=== PATIENT | male | born 1970 | race Hispanic/Latino ===

== ENCOUNTER → 2020-10-18 | Outpatient (CLI) | payer MEDICARE, OTHER ==
[~2020-10-18] MED LIST: Calcium Carbonate PO; LOSARTAN-HCTZ1 EAC2 PO; METOPROLOL TART50 MG PO; Metoprolol Tartrate PO; NOVOLOG MI100 UNIT/1; Nifedipine PO; PROTONIX40 MG/ML PO; RENVELA800 MG PO; ROCALTROL0.25 MCG PO
== END ==
LOC: RAD 11:32
PROVIDERS: ATTEND Family Medicine
DX: R05 Cough (principal); R06.2 Wheezing
CPT/HCPCS: 71046

== ENCOUNTER 2023-05-22 22:42 | Emergency (ER) | payer MEDICARE, OTHER ==
[~2023-05-22] VITALS: Ht 182.9 cm; Wt 90.7 kg
[2023-05-22] MEDS ORDERED: TOBRAMYCIN SULFA5 ML OD (23:11)
[2023-05-22] MEDS ORDERED: FLUORESCEIN SOD(OPTH) 1 MG STRP OP ONE (23:15)
[2023-05-22] MEDS ORDERED: TETRACAINE HCL 0.5% OPTH SOLN 4 ML BTL OP ONE (23:15)
[2023-05-22 23:25] VITALS: BP 178/90; PULSE 70; RESP 18; TEMP 97.3; O2SAT 98
[2023-05-23] MEDS ORDERED: FLUORESCEIN SOD(OPTH) 1 MG STRP ONE (00:37)
[2023-05-23] MEDS ORDERED: TETRACAINE HCL 0.5% OPTH SOLN 4 ML BTL ONE (00:37)
[2023-05-23] MEDS ORDERED: TYLENOL325 MG PO (13:41)
[2023-05-23] MEDS ORDERED: DIPHENHYDRAMINE25 MG PO (13:41)
== END 2023-05-22 23:25 | disposition home or self-care (01) ==
LOC: FSED 22:46
DX: H57.11 Ocular pain, right eye (principal); T15.01XA Foreign body in cornea, right eye, initial encounter; H10.9 Unspecified conjunctivitis; I12.0 Hypertensive chronic kidney disease with stage 5 chronic kidney disease or end stage renal disease; E11.22 Type 2 diabetes mellitus with diabetic chronic kidney disease; N18.6 End stage renal disease; Z94.0 Kidney transplant status
CPT/HCPCS: 99283

== ENCOUNTER 2023-05-23 12:56 | Emergency (ER) | payer MEDICARE, OTHER ==
[~2023-05-23] VITALS: Ht 182.9 cm; Wt 90.7 kg
[~2023-05-23 12:56] MED LIST changes: +TOBRAMYCIN SULFA5 ML OD
[2023-05-23 13:09] VITALS: O2SAT 97
[2023-05-23] MEDS ORDERED: TYLENOL325 MG PO (13:41)
[2023-05-23] MEDS ORDERED: DIPHENHYDRAMINE25 MG PO (13:41)
== END 2023-05-23 14:06 | disposition home or self-care (01) ==
LOC: FSED 13:04
DX: S05.01XA Injury of conjunctiva and corneal abrasion without foreign body, right eye, initial encounter (principal); I12.0 Hypertensive chronic kidney disease with stage 5 chronic kidney disease or end stage renal disease; E11.22 Type 2 diabetes mellitus with diabetic chronic kidney disease; N18.6 End stage renal disease; Z94.0 Kidney transplant status
CPT/HCPCS: 99283

== ENCOUNTER → 2023-11-12 | Outpatient (REF) | payer MEDICARE, OTHER ==
[~2023-11-12] MED LIST changes: +DIPHENHYDRAMINE25 MG PO; +TYLENOL325 MG PO
[2023-11-12 15:02] LABS: BASOPHILS % 0.2 % (0.0-1.0); EOSINOPHILS # (AUTO) 0.1 (0.0-0.4); EOSINOPHILS % 0.9 % (0.0-6.0); HEMATOCRIT 47.9 % (38.2-49.6); HEMOGLOBIN 15.9 g/dL (14.0-18.0); LYMPHOCYTES # (AUTO) 0.6 (1.0-3.2); LYMPHOCYTES % 9.6 % (18.0-39.1); MEAN CORPUSCULAR HEMOGLOBIN 29.4 pg (28-32); MEAN CORPUSCULAR HGB CONC 33.2 g/dL (31-35); MEAN CORPUSCULAR VOLUME 88.7 fL (81-99); MONOCYTES # (AUTO) 0.4 (0.2-0.8); MONOCYTES % 6.8 % (4.4-11.3); NEUTROPHILS # (AUTO) 4.7 (2.1-6.9); PLATELET COUNT 162 x10e3/uL (140-360); RED CELL DISTRIBUTION WIDTH 13.1 % (11.7-14.4); WHITE BLOOD COUNT 5.75 x10e3/uL (4.8-10.8)
[2023-11-12 15:08] LABS: INR 0.88; PROTHROMBIN TIME 12.6 seconds (11.9-14.5)
[2023-11-12 15:09] LABS: PARTIAL THROMBOPLASTIN TIME 26.9 seconds (23.8-35.5)
[2023-11-12 15:33] LABS: ANION GAP 19.6 mmol/L (8-16); CREATININE, SERUM 1.54 mg/dL (0.72-1.25); POTASSIUM 4.6 mmol/L (3.5-5.1)
[2023-11-12 15:34] LABS: ALBUMIN 3.8 g/dL (3.5-5.0); ALBUMIN/GLOBULIN RATIO 1.2 (0.8-2.0); BILIRUBIN,TOTAL 0.8 mg/dL (0.2-1.2); CALCIUM 10.1 mg/dL (8.4-10.2); TOTAL PROTEIN 6.9 g/dL (6.5-8.1)
[2023-11-12 15:40] LABS: ERYTHROCYTE SEDIMENTATION RATE 2 mm/hr (0-13)
== END ==
LOC: DX 12:54
PROVIDERS: ATTEND Internal Medicine Infectious Disease
DX: M86.271 Subacute osteomyelitis, right ankle and foot (principal)
CPT/HCPCS: 36415; 36569; 71045; 80053; 82550; 85025; 85610; 85651; 85730; 86140